=== PATIENT | female | born 1980 | race American Indian/Alaskan Native ===

== ENCOUNTER 2017-04-11 11:11 | Emergency (ER) | payer BC ==
[2017-04-11 11:13] VITALS: BMI 48.0
[2017-04-11 11:25] VITALS: TEMP 98.4
[2017-04-11] MEDS ORDERED: Sodium Chloride 0.9% 1,000 ML IV STA (11:43)
[2017-04-11] MEDS ORDERED: Levalbuterol 1.25 MG/3 ML Inhal Soln UD IH STA (11:46)
--- NOTE | 2017-04-11 11:49 | ED PDOC ---
Arrival/HPI - General Historian: Patient - History of Present Illness Time/Duration: < week Symptom Onset: Gradual Symptom Course: Unchanged Quality: Aching Severity Level: 5 Activities at Onset: Rest Context: Home <Carolina Cotter - Last Filed: 04/11/17 14:20> <SangitaElvinmina - Last Filed: 04/11/17 15:04> - General Chief Complaint: Fever Time Seen by Provider: 04/11/17 11:16 - History of Present Illness Narrative History of Present Illness (Text): 04/11/17 11:47 This is a 36Y F with PMH of asthma here for back pain and increased urinary frequency x 2 days. Patient reports that 2 days ago she started to have mid to low back pain described as aching and does not radiate. Yesterday, the pain became worse and started to have urinary frequency and chills. She is on her period right now so she does not know if she has hematuria. She denies dysuria. She has had a UTI in the past, but reports it does not feel like one. The patient also reports of some chest tightness, especially when taking deep breaths. She denies n/v/d, numbness/tingling, SOB, or fever. (Carolina Cotter) Past Medical History - Provider Review Nursing Documentation Reviewed: Yes - Cardiac Hx Cardiac Disorders: No - Pulmonary Hx Asthma: Yes - Neurological Hx Neurological Disorder: No - HEENT Hx HEENT Disorder: No - Renal Hx Renal Disorder: No - Endocrine/Metabolic Hx Endocrine Disorders: No - Hematological/Oncological Hx Blood Disorders: No - Integumentary Hx Dermatological Disorder: No - Musculoskeletal/Rheumatological Hx Musculoskeletal Disorders: No - Gastrointestinal Hx Gastrointestinal Disorders: No - Genitourinary/Gynecological Hx Genitourinary Disorders: No - Psychiatric Hx Psychophysiologic Disorder: No Hx Substance Use: No - Surgical History Hx Section: Yes <Carolina Cotter - Last Filed: 04/11/17 14:20> Family/Social History - Physician Review Nursing Documentation Reviewed: Yes Family/Social History: Other (kidney stones) Smoking Status: Never Smoked Hx Alcohol Use: No Hx Substance Use: No <Carolina Cotter - Last Filed: 04/11/17 14:20> Allergies/Home Meds <Carolina Cotter - Last Filed: 04/11/17 14:20> <Esther Quesada - Last Filed: 04/11/17 15:04> Allergies/Adverse Reactions: Allergies No Known Allergies Allergy (Verified 04/11/17 11:21) Review of Systems - Physician Review All systems were reviewed & negative as marked: Yes - Review of Systems Constitutional: Other (chills). absent: Fevers Eyes: Normal. absent: Vision Changes ENT: Normal. absent: Hearing Changes Respiratory: Normal. absent: SOB, Cough Cardiovascular: Chest Pain. absent: Palpitations, Edema, Calf Pain Gastrointestinal: Normal. absent: Abdominal Pain, Constipation, Diarrhea, Nausea, Vomiting, Hematochezia Genitourinary Female: Frequency. absent: Dysuria, Hematuria Musculoskeletal: Back Pain. absent: Neck Pain, Joint Swelling, Myalgias Skin: Normal. absent: Rash, Pruritis Neurological: Headache. absent: Dizziness, Focal Weakness Endocrine: Normal. absent: Diaphoresis Psychiatric: Normal. absent: Anxiety, Depression <Carolina Cotter - Last Filed: 04/11/17 14:20> Physical Exam Vital Signs Reviewed: Yes Temperature: Afebrile Blood Pressure: Normal Pulse: Regular Respiratory Rate: Normal Appearance: Positive for: Well-Appearing, Non-Toxic, Comfortable Pain Distress: None Mental Status: Positive for: Alert and Oriented X 3 - Systems Exam Head: Present: Atraumatic, Normocephalic Pupils: Present: PERRL Extroacular Muscles: Present: EOMI Conjunctiva: Present: Normal Mouth: Present: Moist Mucous Membranes Neck: Present: Normal Range of Motion Respiratory/Chest: Present: Clear to Auscultation, Good Air Exchange. No: Respiratory Distress, Accessory Muscle Use Cardiovascular: Present: Regular Rate and Rhythm, Normal S1, S2. No: Murmurs Abdomen: Present: Normal Bowel Sounds. No: Tenderness, Distention, Peritoneal Signs Back: Present: CVA Tenderness (on L ). No: Midline Tenderness Upper Extremity: Present: Normal Inspection. No: Cyanosis, Edema Lower Extremity: Present: Normal Inspection, Edema (trace bilaterally ) Neurological: Present: GCS=15, CN II-XII Intact, Speech Normal Skin: Present: Warm, Dry, Normal Color. No: Rashes Psychiatric: Present: Alert, Oriented x 3, Normal Insight, Normal Concentration <Carolina Cotter - Last Filed: 04/11/17 14:20> <Esther Quesada - Last Filed: 04/11/17 15:04> Vital Signs Temp Pulse Resp BP Pulse Ox 04/11/17 14:24 71 18 135/51 L 99 04/11/17 12:16 77 18 146/74 98 04/11/17 11:22 98.4 F 77 17 146/74 100 Medical Decision Making Re-evaluation Time: 14:03 Reassessment Condition: Improved - Lab Interpretations I have reviewed the lab results: Yes Interpretation: Abnormal lab values (anemia, elevated bilirubin) - RAD Interpretation Plate Stacker Hand: Radiologist - EKG Interpretation Interpreted by ED Physician: Yes Type: 12 lead EKG Comparison: No previous EKG avail. <Carolina Cotter - Last Filed: 04/11/17 14:20> <Esther Quesada - Last Filed: 04/11/17 15:04> ED Course and Treatment: 04/11/17 11:52 Impression: This is a 36Y F with PMH of asthma here for back pain and increased urinary frequency x 2 days. Patient also complains of chest tightness with deep breaths and is noted to have L CVA tenderness. DDX: pyelonephritis, kidney stone, UTI Plan: -- CBC, CMP, U/A, Urine Culture, lipase, amylase, pt/ptt -- EKG -- CT abd/pelvis -- IVF, Duoneb, Toradol --Reassess Prior Visits: Notes and results from previous visits were reviewed. Progress Note: Patient reports having chest tightness. CXR obtained. Showed no active disease. CT abd/pelvis showed cholelithiasis, no evidence of kidney stones. Patient noted to have elevated indirect bilirubin. Patient reports she still has some back pain and remembered that she has spinal stenosis of the lumbar spine as well. She says she has an appointment with her orthopedist this Sunday. Discharge Instructions: Re-evaluation. Patient feels better. Discussed results and plan with patient who expresses understanding. All questions answered and there is agreement with the plan to discharge home with instructions. Patient stable for discharge. Return if symptoms persist or worsen. 04/11/17 14:02 (Carolina Cotter) A 36 year old female with back pain and urinary frequency. In agreement with resident note, which includes further HPI details. Patient was seen and evaluated with resident, came up with plan and treatment together. Blood work showing elevated bili, likely Gilbert's but ow unremarkable. Urine shows RBCs but on menses. Per patient back pain started with hip pain for which she scheduled ortho appt later this week but now both sides of the back and worse with movement. No abd pain or n/v. CT shows gallstones but no renal stones. Back pain is likely muscular but given urine symptoms, will add abx. Patient also saying she has mild chest heaviness that is positional but no sob. Vitals are normal with normal ekg and cxr and no acs risk factors and is perc negative. Heaviness resolved with nebulizer. No additional workup - will d/c. (Esther Quesada) - Lab Interpretations Lab Results: 04/11/17 12:05 04/11/17 12:05 Lab Results 04/11/17 13:20: Direct Bilirubin 0.2 04/11/17 12:05: Sodium 139, Potassium 3.7, Chloride 104, Carbon Dioxide 27, Anion Gap 12, BUN 8, Creatinine 0.9, Est GFR ( Amer) > 60, Est GFR (Non- Af Amer) > 60, Random Glucose 109, Calcium 9.5, Total Bilirubin 2.7 H, AST 23, ALT 36, Alkaline Phosphatase 84, Total Protein 7.8, Albumin 4.3, Globulin 3.5, Albumin/Globulin Ratio 1.2, Amylase 52, Lipase 37 04/11/17 12:05: PT 10.6, INR 0.98, APTT 26.1 04/11/17 12:05: WBC 7.4, RBC 4.18, Hgb 10.7 L, Hct 34.2 L, MCV 81.8, MCH 25.6, MCHC 31.3, RDW 14.9 H, Plt Count 345, MPV 9.5, Gran % 65.5, Lymph % (Auto) 23.5 , [place] % (Auto) 7.2 H, Eos % (Auto) 3.4, Baso % (Auto) 0.4, Gran # 4.86, Lymph # 1.7, [place] # 0.5, Eos # 0.3, Baso # 0.03 04/11/17 11:50: Urine Color Light red, Urine Appearance Sl cloudy, Urine pH 6.5 , Ur Specific [place] 1.020, Urine Protein 30 H, Urine Glucose (UA) Negative, Urine Ketones Negative, Urine Blood Large H, Urine Nitrate Negative, Urine Bilirubin Negative, Urine Urobilinogen 1.0 H, Ur Leukocyte Esterase Negative, Urine RBC Tntc, Urine WBC Negative, Ur Epithelial Cells 0 - 2, Urine Bacteria Few, Urine HCG, Qual Negative - RAD Interpretation Narrative RAD Interpretations (Text): 04/11/17 13:28 Chest XR FINDINGS: LUNGS: No active pulmonary disease. PLEURA: No significant pleural effusion identified, no pneumothorax apparent. CARDIOVASCULAR: Normal. OSSEOUS STRUCTURES: No significant abnormalities. VISUALIZED UPPER ABDOMEN: Normal. OTHER FINDINGS: None. IMPRESSION: No active disease. . 04/11/17 14:04 CT abd/pelvis showed no evidence of obstructive uropathy or nephrolithiasis. There was no evidence of acute pelvic or abdominal abnormality. Cholelithiasis was seen. Please see full report for more detail. (Carolina Cotter) Radiology Orders: 04/11/17 11:44 ABD & PELVIS W/O PO OR IV CONT [CT] Stat 04/11/17 13:02 CXR [CHEST PORTABLE] [RAD] Stat - EKG Interpretation EKG Interpretation (Text): 04/11/17 13:26 HR at 68. Intervals normal. NSR. (Carolina Cotter) - Medication Orders Current Medication Orders: Discontinued Medications Sodium Chloride (Sodium Chloride 0.9%) 1,000 mls @ 1,000 mls/hr IV .Q1H STA Stop: 04/11/17 12:42 Last Admin: 04/11/17 12:01 Dose: 1,000 mls/hr Ketorolac Tromethamine (Toradol) 30 mg IVP STAT STA Stop: 04/11/17 11:44 Last Admin: 04/11/17 12:04 Dose: 30 mg Levalbuterol HCl (Xopenex) 1.25 mg IH STAT STA Stop: 04/11/17 11:47 Last Admin: 04/11/17 12:04 Dose: 1.25 mg <Carolina Cotter - Last Filed: 04/11/17 14:20> - PA / ROOM SERVICE WAITER/WAITRESS / Resident Statement / has reviewed & agrees with the documentation as recorded. / has examined the patient and agrees with the treatment plan. - Scribe Statement The provider has reviewed the documentation as recorded by the Scribe <Esther Quesada - Last Filed: 04/11/17 15:04> - Scribe Statement Karla Acevedo Provider Scribe Attestation: All medical record entries made by the Scribe were at my direction and personally dictated by me. I have reviewed the chart and agree that the record accurately reflects my personal performance of the history, physical exam, medical decision making, and the department course for this patient. I have also personally directed, reviewed, and agree with the discharge instructions and disposition. (Esther Quesada) Disposition/Present on Arrival - Present on Arrival Any Indicators Present on Arrival: No History of DVT/PE: No History of Uncontrolled Diabetes: No Urinary Catheter: No History of Decub. Ulcer: No History Surgical Site Infection Following: None - Disposition Have Diagnosis and Disposition been Completed?: Yes Disposition Time: 14:21 Patient Plan: Discharge <Carolina Cotter - Last Filed: 04/11/17 14:20> <Esther Quesada - Last Filed: 04/11/17 15:04> - Disposition Diagnosis: UTI (urinary tract infection), Back pain Disposition: HOME/ ROUTINE Condition: FAIR Discharge Instructions (ExitCare): Gallstones (ED) Print Language: GERMAN Additional Instructions: [facility], thank you for letting us take care of you today. Your provider was Dr. Cotter. You were treated for back pain, chest tightness and urinary frequency. The emergency medical care you received today was directed at your acute symptoms. If you were prescribed any medication, please fill it and take as directed. It may take several days for your symptoms to resolve. Return to the Emergency Department if your symptoms worsen, do not improve, or if you have any other problems. Please contact your doctor or call one of the physicians/clinics you have been referred to that are listed on the Patient Visit Information form that is included in your discharge packet. Bring any paperwork you were given at discharge with you along with any medications you are taking to your follow up visit. Our treatment cannot replace ongoing medical care by a primary care provider (PCP) outside of the emergency department. Thank you for allowing the [facility] team to be part of your care today. If you had an X-Ray or CT scan: A Radiologist will review the ED reading if any change in treatment is needed we will contact you. If you had a blood, urine, or wound culture: It will take several days for the results, if any change in treatment is needed we will contact you. Please follow up for elevated indirect bilirubin with primary medical doctor. Also recommend follow up with surgeon (Dr. Denton or surgeon of your choice ) for gallstones. Avoid heavy lifting. Follow up with your orthopedic surgeon as scheduled. Prescriptions: Baclofen [Lioresal] 1 cap PO TID PRN #15 tab PRN Reason: Pain, Moderate (4-7) Nitrofurantoin Macrocrystals [Macrobid] 100 mg PO BID #14 cap traMADol [Ultram] 1 - 2 tab PO Q8H PRN #15 tab PRN Reason: Pain, Severe (8-10) Referrals: [facility], [Primary Care Provider] - Follow up with primary [facility] [Outside] - Follow up with primary Tod Denton MD [Staff Provider] - Follow up with primary Forms: WORK NOTE
[2017-04-11 12:04] LABS: PH,URINE 6.5 (4.7-8.0); URINE BILIRUBIN NEGATIVE (NEGATIVE); URINE BLOOD LARGE (NEGATIVE); URINE GLUCOSE (UA) NEGATIVE (NEGATIVE); URINE KETONE NEGATIVE (NEGATIVE); URINE LEUKOCYTE ESTERASE NEGATIVE Leu/uL (NEGATIVE); URINE PROTEIN 30 mg/dL (<30 mg/dL)
[2017-04-11 12:05] LABS: URINE APPEARANCE SL CLOUDY (CLEAR); URINE COLOR LIGHT RED (YELLOW)
[2017-04-11 12:06] LABS: ADD MANUAL DIFF? NO
[2017-04-11 12:10] LABS: BASO # 0.03 K/mm3 (0.0-2.0); BASO % 0.4 % (0.0-3.0); EOS # 0.3 (0.0-0.7); EOS % 3.4 % (1.5-5.0); GRAN # 4.86 (1.4-6.5); GRAN % 65.5 % (50.0-68.0); HEMATOCRIT 34.2 % (36.0-48.0); LYMPH # 1.7 (1.2-3.4); LYMPH % 23.5 % (22.0-35.0); MEAN CELL VOLUME 81.8 fL (80.0-105.0); MEAN CORPUSCULAR HEMOGLOBIN 25.6 pg (25.0-35.0); MEAN CORPUSCULAR HGB CONC 31.3 g/dl (31.0-37.0); MEAN PLATELET VOLUME 9.5 fl (7.0-11.0); MONO # 0.5 (0.1-0.6); MONO % 7.2 % (1.0-6.0); PLATELET COUNT 345 10^3/uL (120.0-450.0); RED CELL DISTRIBUTION WIDTH 14.9 % (11.5-14.5); WHITE BLOOD COUNT 7.4 10^3/ul (4.5-11.0)
[2017-04-11 12:11] LABS: URINE BACTERIA FEW (NEG); URINE EPITHELIAL CELLS 0 - 2 /hpf (0-5); URINE RBC TNTC /hpf (0-2); URINE WBC NEGATIVE /hpf (0-6)
[2017-04-11 12:17] VITALS: RESP 18
[2017-04-11 12:23] LABS: ALB/GLOB RATIO 1.2 (1.1-1.8); ALKALINE PHOSPHATASE 84 U/L (38-133); ALT/SGPT 36 U/L (7-56); AMYLASE 52 U/L (35-125); AST/SGOT 23 U/L (15-39); BILIRUBIN,TOTAL 2.7 mg/dL (0.2-1.3); BLOOD UREA NITROGEN 8 mg/dL (7-21); CALCIUM 9.5 mg/dL (8.4-10.5); CARBON DIOXIDE 27 mmol/L (21-33); CHLORIDE 104 mmol/L (98-107); GFR AFRICAN-AMERICAN > 60; GLUCOSE,RANDOM 109 mg/dL (70-110); INR 0.98 (0.93-1.08); LIPASE 37 U/L (23-300); PARTIAL THROMBOPLASTIN TIME 26.1 Seconds (23.7-30.8); POTASSIUM 3.7 mmol/L (3.6-5.0); SODIUM 139 mmol/L (132-148); TOTAL PROTEIN 7.8 g/dL (5.8-8.3)
--- NOTE | 2017-04-11 13:22 | RAD ---
HISTORY: chest tightness COMPARISON: No prior. FINDINGS: LUNGS: No active pulmonary disease. PLEURA: No significant pleural effusion identified, no pneumothorax apparent. CARDIOVASCULAR: Normal. OSSEOUS STRUCTURES: No significant abnormalities. VISUALIZED UPPER ABDOMEN: Normal. OTHER FINDINGS: None. IMPRESSION: No active disease.
--- NOTE | 2017-04-11 13:57 | CT ---
PROCEDURE: CT Abdomen and Pelvis without intravenous contrast HISTORY: L flank pain - r/o stone COMPARISON: None. TECHNIQUE: Helical CT scan of the abdomen and pelvis was performed without administration of intravenous contrast. Oral contrast was not administered. Radiation dose: Total exam DLP = 1626.31 mGy-cm. This CT exam was performed using one or more of the following dose reduction techniques: Automated exposure control, adjustment of the mA and/or kV according to patient size, and/or use of iterative reconstruction technique. FINDINGS: LOWER THORAX: The lung bases are clear. LIVER: The liver is normal in size. There is a Rehana's lobe. No gross lesion or ductal dilatation. GALLBLADDER AND BILE DUCTS: There are multiple gallstones. PANCREAS: Normal in size. No gross lesion or ductal dilatation. SPLEEN: Normal in size. ADRENALS: Both adrenal glands are normal in size without discrete nodule. KIDNEYS AND URETERS: Both kidneys are normal in size without hydronephrosis or nephrolithiasis. VASCULATURE: No aortic aneurysm. BOWEL: The small bowel loops are normal in caliber. The colon is unremarkable. APPENDIX: Normal appendix. PERITONEUM: There is small amount of free fluid in the pelvis, likely physiologic. No free air. LYMPH NODES: No enlarged lymph nodes. BLADDER: Unremarkable. REPRODUCTIVE: The uterus is normal in size. No adnexal masses. BONES: No acute fracture. 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 OTHER FINDINGS: None. IMPRESSION: No acute abdominal or pelvic abnormality. No evidence of nephrolithiasis or obstructive uropathy. Cholelithiasis.
[2017-04-11 14:24] VITALS: BP 135/51; PULSE 71; O2SAT 99
--- NOTE | 2017-04-11 22:17 | CARD ---
APPROVED REPORT EKG Measurement Heart [id number] <Conclusion> Normal sinus rhythm Normal ECG
== END 2017-04-11 14:34 | disposition home or self-care (01) ==
LOC: ED 11:11
DX: N39.0 Urinary tract infection, site not specified (principal); M54.5 Low back pain
CPT/HCPCS: 71010; 74176; 80053; 81001; 82150; 82248; 83690; 84703; 85025; 85610; 85730; 87086; 93005; 96374; 99284; J1885; J7040